=== PATIENT | male | born 1965 | race Caucasian/White ===

== ENCOUNTER 2019-02-17 15:06 | Emergency (ER) | payer OTHER ==
[~2019-02-17] VITALS: Ht 182.9 cm; Wt 79.4 kg
[~2019-02-17 15:06] MED LIST: Amoxicillin500 MG PO; Flonase 0.05% N16 GM; PSEU120ER PO
[2019-02-17] MEDS ORDERED: KETO10 PO (16:35)
[2019-02-17] MEDS ORDERED: DICLOFENAC SOD100 G1 TOP (16:35)
[2019-02-17] MEDS ORDERED: Robaxin-750750 MG PO (16:35)
== END 2019-02-17 16:54 | disposition home or self-care (01) ==
LOC: ER 15:06
DX: M54.5 Low back pain (principal); F17.200 Nicotine dependence, unspecified, uncomplicated
CPT/HCPCS: 96372; 99283-25; J1885

== ENCOUNTER 2020-01-06 10:30 | Emergency (ER) | payer OTHER ==
[~2020-01-06] VITALS: Ht 180.3 cm; Wt 75.3 kg
[~2020-01-06 10:30] MED LIST changes: +DICLOFENAC SOD100 G1 TOP; +KETO10 PO; +Robaxin-750750 MG PO
[2020-01-06] MEDS ORDERED: TRAM50 PO (11:05)
[2020-01-06] MEDS ORDERED: Amoxicillin500 MG PO (11:05)
== END 2020-01-06 11:16 | disposition home or self-care (01) ==
LOC: ER 10:30
DX: K02.9 Dental caries, unspecified (principal); F17.200 Nicotine dependence, unspecified, uncomplicated
CPT/HCPCS: 99282

== ENCOUNTER → 2024-09-04 | Outpatient (CLI) | payer OTHER ==
[~2024-09-04] MED LIST changes: +TRAM50 PO
[2024-09-04 09:45] LABS: BASOPHILS ABSOLUTE AUTO 0.08 K/mm3 (0.00-0.23); BASOPHILS PERCENT AUTO 1 % (0-2); EOSINOPHILS ABSOLUTE AUTO 0.04 K/mm3 (0.00-0.68); EOSINOPHILS PERCENT AUTO 0 % (0-6); Hemoglobin 16.9 g/dL (13.5-17.5); IMMATURE GRAN ABSOLUTE AUTO 0.07 K/mm3 (0.00-0.10); IMMATURE GRAN PERCENT AUTO 0 % (0-1); LYMPHOCYTES ABSOLUTE AUTO 1.71 K/mm3 (0.84-5.20); LYMPHOCYTES PERCENT AUTO 10 % (21-46); MONOCYTES ABSOLUTE AUTO 0.98 K/mm3 (0.16-1.47); MONOCYTES PERCENT AUTO 6 % (4-13); Mean Corpuscular HGB 28.5 pg (26.0-34.0); Mean Corpuscular HGB Conc 34.5 g/dL (31.5-36.5); Mean Corpuscular Volume 83 fL (80-100); Mean Platelet Volume 8.6 fL (9.1-12.4); NEUTROPHILS ABSOLUTE AUTO 14.12 K/mm3 (1.96-9.15); NEUTROPHILS PERCENT AUTO 83 % (41-73); Platelet Count 392 K/mm3 (150-400); RDW Coefficient Variation 14.1 % (11.7-14.2); RDW Standard Deviation 42.2 fL (35.1-46.3); Red Blood Cell Count 5.94 M/mm3 (4.30-5.90)
[2024-09-04 10:07] LABS: Albumin, Blood 4.2 g/dL (3.4-5.0); Bilirubin, Total 0.9 mg/dL (0.1-1.0); Bun/Creatinine Ratio 11.6 (12.0-20.0); Calcium, Blood 9.5 mg/dL (8.5-10.1); Creatinine, Blood 0.95 mg/dL (0.60-1.20); Globulin, Blood 4.1 g/dL (2.2-4.0); Potassium, Blood 3.7 mmol/L (3.5-5.5); Total Protein, Blood 8.3 g/dL (6.4-8.2)
== END ==
LOC: LAB 09:29 → LAB SHORT 09:29
PROVIDERS: Family Medicine
DX: R10.9 Unspecified abdominal pain (principal)
CPT/HCPCS: 80053; 83690; 85025

== ENCOUNTER 2025-02-23 21:44 | Emergency (ER) | payer OTHER ==
[~2025-02-23] VITALS: Ht 180.3 cm; Wt 74.8 kg
[2025-02-23 21:51] VITALS: BP 155/92
== END 2025-02-23 22:13 | disposition home or self-care (01) ==
LOC: ER 21:44
DX: S01.01XA Laceration without foreign body of scalp, initial encounter (principal); Z23 Encounter for immunization; Y09 Assault by unspecified means; Z79.2 Long term (current) use of antibiotics
CPT/HCPCS: 90471; 90715; 99282-25